=== PATIENT | female | born 1955 | race Caucasian/White ===

== ENCOUNTER → 2023-05-07 14:17 | Outpatient (REF) | payer OTHER, SELFPAY | LOC: HWWDC 14:17 | PROVIDERS: ATTENDING PHYSICIAN Family Medicine | DX: Z12.31 Encounter for screening mammogram for malignant neoplasm of breast (principal) | CPT/HCPCS: 77063; 77067 ==

== ENCOUNTER → 2023-05-19 09:15 | Outpatient (REF) | payer OTHER, SELFPAY | LOC: WDC 09:15 | PROVIDERS: ATTENDING PHYSICIAN Family Medicine | DX: R22.31 Localized swelling, mass and lump, right upper limb (principal); N63.31 Unspecified lump in axillary tail of the right breast | CPT/HCPCS: 76642 ==

== ENCOUNTER → 2023-05-26 07:56 | Outpatient (REF) | payer OTHER, SELFPAY ==
--- NOTE | 2023-05-26 13:42 | OID.BR.INTR ---
[place] [facility] - Initial
- -
Date of Contact: 05/26/23
Met with patient. Patient given written information on navigator services and support services available at [facility]. Will follow up as needed per protocol.
== END ==
LOC: WDC 07:56
PROVIDERS: ATTENDING PHYSICIAN Family Medicine
DX: N63.31 Unspecified lump in axillary tail of the right breast (principal)
CPT/HCPCS: 88305; 19083; 88341; 88342; A4648

== ENCOUNTER → 2023-06-04 13:35 | Outpatient (REF) | payer OTHER, SELFPAY | LOC: HWRAD 13:35 | PROVIDERS: ATTENDING PHYSICIAN Family Medicine | DX: R22.32 Localized swelling, mass and lump, left upper limb (principal) | CPT/HCPCS: 76882 ==

== ENCOUNTER → 2023-07-02 09:19 | Outpatient (REF) | payer OTHER, SELFPAY | LOC: PET 09:19 | PROVIDERS: ATTENDING PHYSICIAN Family Medicine | DX: C82.90 Follicular lymphoma, unspecified, unspecified site (principal) | CPT/HCPCS: 78815; A9552 ==

== ENCOUNTER → 2024-10-26 13:35 | Outpatient (REF) | payer OTHER, SELFPAY | LOC: WDC 13:35 | PROVIDERS: ATTENDING PHYSICIAN Family Medicine | DX: Z12.31 Encounter for screening mammogram for malignant neoplasm of breast (principal) | CPT/HCPCS: 77063; 77067 ==

== ENCOUNTER → 2024-10-29 08:46 | Outpatient (REF) | payer OTHER, SELFPAY | LOC: WDC 08:46 | PROVIDERS: ATTENDING PHYSICIAN Family Medicine | DX: R92.8 Other abnormal and inconclusive findings on diagnostic imaging of breast (principal) | CPT/HCPCS: 76642 ==